=== PATIENT | male | born 1940 | race Caucasian/White ===

== ENCOUNTER 2021-01-01 08:48 | Inpatient (IN) | payer MEDICARE ==
[~2021-01-01] VITALS: Ht 177.8 cm; Wt 87.5 kg
[~2021-01-01 08:48] MED LIST: ALDACTONE25 MG PO; AMIODARONE HCL200 MG PO; BUMETANIDE1 MG PO; CLONAZEPAM1 MG PO; COREG6.25 MG PO; K-DUR TAB 10 M10 MEQ PO; LIPITOR TAB 1010 MG PO; NITROSTAT 0.40.4 MG SL; NOVOLIN 70100 UNITS/ SC; PLAVIX75 MG PO; WARFARIN SODIUM4 MG PO
[2021-01-01 10:39] LABS: RED BLOOD COUNT 4.25 M/UL (4.20-5.50); WHITE BLOOD COUNT 12.5 K/UL (4.5-11.0)
[2021-01-01] MEDS ORDERED: NOVOLIN 70100 UNITS/ SC (12:31)
[2021-01-01] MEDS ORDERED: WARFARIN SODIUM3 MG PO (12:36)
[2021-01-01] MEDS ORDERED: KLONOPIN TAB 00.5 MG PO (12:38)
[2021-01-01] MEDS ORDERED: NITROGLYCERIN0.4 MG SL (12:39)
[2021-01-01] MEDS ORDERED: DULCOLAX STOOL100 MG PO (12:40)
[2021-01-01] MEDS ORDERED: SYSTANE 0.3-0.415 ML OU (12:43)
[2021-01-01 13:56] LABS: HEMOGLOBIN 12.9 gm/dl (14.0-17.5); RED BLOOD COUNT 3.94 M/UL (4.20-5.50); WHITE BLOOD COUNT 12.8 K/UL (4.5-11.0)
[2021-01-01] MEDS ORDERED: COREG3.125 MG PO (19:28)
[2021-01-01] MEDS ORDERED: ISOSORBIDE MONO30 MG PO (19:30)
[2021-01-01 20:52] LABS: HEMOGLOBIN 12.3 gm/dl (14.0-17.5); RED BLOOD COUNT 3.82 M/UL (4.20-5.50); WHITE BLOOD COUNT 11.5 K/UL (4.5-11.0)
[2021-01-02 04:21] LABS: RED BLOOD COUNT 3.7 M/UL (4.20-5.50); WHITE BLOOD COUNT 10.9 K/UL (4.5-11.0)
--- NOTE | 2021-01-02 19:32 | NUR ---
SPOKE WITH BOTH DR LEMA AND DR AVINA ABOUT RESTARTING HEPARIN GTT. BOTH WANTED HEPARIN GTT STARTED ONCE PT GOT ONTO FLOOR. LABS PUT IN. DR LEMA ALSO WANTS HOME DOSE OF COUMADIN RESUMED AND GIVEN NOW.
[2021-01-02 20:07] LABS: HEMOGLOBIN 12.8 gm/dl (14.0-17.5); RED BLOOD COUNT 3.91 M/UL (4.20-5.50); WHITE BLOOD COUNT 18.7 K/UL (4.5-11.0)
[2021-01-04 04:21] LABS: WHITE BLOOD COUNT 21.8 K/UL (4.5-11.0)
[2021-01-04 04:26] LABS: RED BLOOD COUNT 3.12 M/UL (4.20-5.50)
[2021-01-04] MEDS ORDERED: KLONOPIN TAB 00.5 MG PO (12:13)
[2021-01-04] MEDS ORDERED: HUMALOG 10100 UNITS/ SC (12:13)
[2021-01-05 05:26] LABS: HEMOGLOBIN 8.6 gm/dl (14.0-17.5); RED BLOOD COUNT 2.7 M/UL (4.20-5.50); WHITE BLOOD COUNT 20.8 K/UL (4.5-11.0)
[2021-01-05] MEDS ORDERED: HYDROCODON-ACE1 EAC4 PO ×2 (09:07→09:17)
--- NOTE | 2021-01-05 09:46 | NUR ---
PATIENT NOTED TO HAVE A NEAR SYNCOPE EPISODE DURING PT EVAL THIS MORNING. PATIENT HAD TO BE STERNAL RUBBED AND CAME BACK TOO. PATIENT BP 139/74. SHE STATES THAT SHE WILL COME AND SEE THE PATIENT AND EVALUATE HIM. NO OTHER CHANGES NOTED.
--- NOTE | 2021-01-05 10:05 | NUR ---
NOTIFIED AT THIS TIME OF BGL OF 460 MG/DL. SHE STATES TO GIVE A ONE TIME DOSE OF LANTUS 5 UNITS AND TREAT THE SUGAR ON SLDING SCALE WELL.
[2021-01-05 13:30] LABS: HEMOGLOBIN 8.7 gm/dl (14.0-17.5); RED BLOOD COUNT 2.7 M/UL (4.20-5.50); WHITE BLOOD COUNT 21.6 K/UL (4.5-11.0)
--- NOTE | 2021-01-05 14:40 | NUR ---
AFTER NITRO ADMINISTRATION PATIENTS BP IS NOTED TO DROP TO 71/42. NOTIFIED AND GAVE ORDERS FOR A 500 CC BOLUS OF NORMAL SALINE. STATES TO CONTINUE TO MONITOR FOR CHANGES.
[2021-01-06 04:54] LABS: HEMOGLOBIN 7.7 gm/dl (14.0-17.5)
[2021-01-06 05:00] LABS: RED BLOOD COUNT 2.4 M/UL (4.20-5.50)
[2021-01-07 05:32] LABS: RED BLOOD COUNT 2.57 M/UL (4.20-5.50); WHITE BLOOD COUNT 19.3 K/UL (4.5-11.0)
--- NOTE | 2021-01-07 09:52 | NUR ---
PATIENT NOTED TO HAVE AN O2 SAT OF 83% ON 2LNC. PROVIDER MADE AWARE AND ORDERS GIVEN TO BMP O2 TO 4LNC. PATIENT SAT NOTED TO RISE TO 94% ON 4LNC.
[2021-01-08 09:04] LABS: HEMOGLOBIN 7.3 gm/dl (14.0-17.5)
[2021-01-08 09:08] LABS: RED BLOOD COUNT 2.28 M/UL (4.20-5.50)
--- NOTE | 2021-01-09 05:11 | NUR ---
0500- PATIENT TOOK DRESSING ON RIGHT HIP OFF SEVERAL TIMES THRU THE NIGHT, REPLACED X 2 BUT PT KEPT REMOVING. INCISION C,D,I
[2021-01-09 08:06] LABS: HEMOGLOBIN 7.3 gm/dl (14.0-17.5); RED BLOOD COUNT 2.33 M/UL (4.20-5.50); WHITE BLOOD COUNT 17.8 K/UL (4.5-11.0)
[2021-01-09 08:33] LABS: BUN/CREATININE RATIO 33 (0-10)
[2021-01-10 03:49] LABS: RED BLOOD COUNT 2.27 M/UL (4.20-5.50); WHITE BLOOD COUNT 14.5 K/UL (4.5-11.0)
[2021-01-10 04:10] LABS: BUN/CREATININE RATIO 29 (0-10)
--- NOTE | 2021-01-11 03:00 | NUR ---
PT HAS BEEN AGITATED AND UNCOOPERATIVE FOR MOST OF SHIFT. PT DOES NOT ALLOW ANY HOSPITAL PERSONNEL OR HIS OWN DAUGHTERS TO TOUCH HIM MOST TIMES. PT HAS NOT BEEN COOPERATIVE ENOUGH TO ALLOW FOR POTENTIAL BLOOD TRANSFUSION THAT HAS BEEN ORDERED. DAUGHTERS STATE THAT THEY WANT TO TRY AND WAIT UNTIL DAYLIGHT OR MID-MORNING TO ATTEMPT TO GIVE BLOOD R/T PT'S AGGRESSION. PT DAUGHTERS ALSO STATED THAT THEY WANTED TO WAIT UNTIL 0400 TO SEE IF PT WAS STILL AWAKE BEFORE DRAWING ORDERED LABWORK. DAUGHTERS BOTH STATED THAT IF PT IS SLEEPING AT 0400, THEN THEY WANT TO WAIT UNTIL "6 OR 7 O'CLOCK" TO DRAW BLOODWORK. DAUGHTERS ARE AWARE OF HGB LEVEL AND STATE AN UNDERSTANDING FOR THE NEED FOR THE BLOOD TRANSFUSION. PT IS ASYMPTOMATIC ANEMIA WITH NO CURRENT S/S OF COMPLICATIONS NOTED. WCTM
[2021-01-11 06:20] LABS: RED BLOOD COUNT 2.16 M/UL (4.20-5.50); WHITE BLOOD COUNT 15.2 K/UL (4.5-11.0)
[2021-01-11 06:34] LABS: HEMOGLOBIN 6.8 gm/dl (14.0-17.5)
[2021-01-11 06:45] LABS: BUN/CREATININE RATIO 26 (0-10)
[2021-01-11 14:27] LABS: HEMOGLOBIN 8.1 gm/dl (14.0-17.5)
[2021-01-11 15:06] LABS: WHITE BLOOD COUNT 14.9 K/UL (4.5-11.0)
[2021-01-11 15:07] LABS: RED BLOOD COUNT 2.58 M/UL (4.20-5.50)
[2021-01-12 08:04] LABS: BUN/CREATININE RATIO 25 (0-10)
[2021-01-13 06:01] LABS: HEMOGLOBIN 8.3 gm/dl (14.0-17.5); RED BLOOD COUNT 2.62 M/UL (4.20-5.50); WHITE BLOOD COUNT 16.5 K/UL (4.5-11.0)
[2021-01-13 06:18] LABS: BUN/CREATININE RATIO 23 (0-10)
--- NOTE | 2021-01-13 15:27 | NUR ---
RN AND STAFF TRANSFERRED PATIENT UTILIZING WALKER. FAMILY AT BEDSIDE STATED THEY THOUGHT PATIENT HAD TWO PRESSURE ULCERS ON THE BOTTOM OF HIS RIGHT THIGH DIRECTLY ABOVE THE BEND OF HIS KNEE. RN AND STAFF POSITIONED PATIENT IN A LYING POSITION IN BED, LOG ROLLED HIM ON HIS LEFT SIDE AND ASSESSED AREA. YELLOW AND PINK DISCOLORATION WITH SCANT PEELING NOTED TO TOP LEFT BORDER OF AREA. DECREASED EDEMA AND BRUISING NOTED TO RIGHT LEG VERBALIZED BY FAMILY. ALLEVYN PLACED ON AREA TO PROVIDE PROTECTION AND PREVENT FURTHER SKIN BREAKDOWN. DR. MANJARREZ MADE AWARE.
--- NOTE | 2021-01-14 15:24 | NUR ---
01/14/21 1520 BACK TO BED
[2021-01-15 06:54] LABS: HEMOGLOBIN 8.9 gm/dl (14.0-17.5); RED BLOOD COUNT 2.81 M/UL (4.20-5.50); WHITE BLOOD COUNT 15.9 K/UL (4.5-11.0)
[2021-01-15 07:10] LABS: BUN/CREATININE RATIO 24 (0-10)
[2021-01-15] MEDS ORDERED: LOVENOX100 MG/1 M SQ (11:28)
--- NOTE | 2021-01-15 12:33 | NUR ---
01/15/21 [id number] REPORT CALLED TO CELESTE AT [facility]
[2021-01-16] MEDS ORDERED: WARFARIN SODIUM5 MG PO (20:24)
[2021-01-16] MEDS ORDERED: MIRALAX17 GM PO (20:26)
== END 2021-01-15 14:37 | disposition home health service (06) | DRG 480 ==
LOC: ER1 08:48 → CDU 11:25 → MED SURG 4 11:25
PROVIDERS: Internal Medicine Infectious Disease; Orthopaedic Surgery; Physician Assistant; Physician Assistant Medical; ADMIT Internal Medicine
PROC: 0QS604Z Reposition Right Upper Femur with Internal Fixation Device, Open Approach (ICD-10-PCS; 2021-01-02)
PROC: 30233N1 Transfusion of Nonautologous Red Blood Cells into Peripheral Vein, Percutaneous Approach (ICD-10-PCS; principal; 2021-01-06)
DX: S72.141A Displaced intertrochanteric fracture of right femur, initial encounter for closed fracture (principal); G92 Toxic encephalopathy; I50.23 Acute on chronic systolic (congestive) heart failure; J69.0 Pneumonitis due to inhalation of food and vomit; Z20.822 Contact with and (suspected) exposure to COVID-19; I13.0 Hypertensive heart and chronic kidney disease with heart failure and stage 1 through stage 4 chronic kidney disease, or unspecified chronic kidney disease; D62 Acute posthemorrhagic anemia; N17.9 Acute kidney failure, unspecified; M96.830 Postprocedural hemorrhage of a musculoskeletal structure following a musculoskeletal system procedure; N18.30 Chronic kidney disease, stage 3 unspecified; W08.XXXA Fall from other furniture, initial encounter; I25.10 Atherosclerotic heart disease of native coronary artery without angina pectoris; T45.515A Adverse effect of anticoagulants, initial encounter; E78.5 Hyperlipidemia, unspecified; E11.65 Type 2 diabetes mellitus with hyperglycemia; F41.9 Anxiety disorder, unspecified; I25.5 Ischemic cardiomyopathy; I48.0 Paroxysmal atrial fibrillation; Y83.8 Other surgical procedures as the cause of abnormal reaction of the patient, or of later complication, without mention of misadventure at the time of the procedure; F03.90 Unspecified dementia, unspecified severity, without behavioral disturbance, psychotic disturbance, mood disturbance, and anxiety; Z95.5 Presence of coronary angioplasty implant and graft; Z95.1 Presence of aortocoronary bypass graft; Z95.810 Presence of automatic (implantable) cardiac defibrillator; Z79.01 Long term (current) use of anticoagulants; Z88.2 Allergy status to sulfonamides; Z82.49 Family history of ischemic heart disease and other diseases of the circulatory system; Z83.3 Family history of diabetes mellitus; Z79.4 Long term (current) use of insulin; Z79.899 Other long term (current) drug therapy
CPT/HCPCS: 36415; 36430; 51702; 70450; 71045; 73502; 73552; 74018; 76000; 80048; 80053; 80202; 81001; 82550; 82553; 82962; 83605; 83735; 83874; 83880; 84484; 85007; 85018; 85025; 85027; 85610; 85730; 86850; 86900; 86901; 86920; 87040; 93005; 94640; 94760; 96374; 96375; 97110-GP-CQ; 97116; 97116-GP-CQ; 97163; 97166; 97530; 97530-GP-CQ; 97535; 99285; C1713; J0171; J0690; J1100; J1630; J1644; J1650; J1720; J1885; J2001; J2060; J2270; J2405; J2543; J2795; J3010; J3370; J3486; J7030; J7040; J7050; J7070; J7120; P9016; U0002

== ENCOUNTER 2021-01-16 10:28 | Inpatient (IN) | payer MEDICARE ==
[~2021-01-16] VITALS: Ht 177.8 cm; Wt 87.1 kg
[~2021-01-16 10:28] MED LIST changes: +COREG3.125 MG PO; +DULCOLAX STOOL100 MG PO; +HUMALOG 10100 UNITS/ SC; +HYDROCODON-ACE1 EAC4 PO; +ISOSORBIDE MONO30 MG PO; +KLONOPIN TAB 00.5 MG PO; +LOVENOX100 MG/1 M SQ; +NITROGLYCERIN0.4 MG SL; +SYSTANE 0.3-0.415 ML OU; +WARFARIN SODIUM3 MG PO
[2021-01-16 11:51] LABS: HEMOGLOBIN 9.7 gm/dl (14.0-17.5); WHITE BLOOD COUNT 16.8 K/UL (4.5-11.0)
[2021-01-16 12:01] LABS: RED BLOOD COUNT 3.12 M/UL (4.20-5.50)
[2021-01-16 12:38] LABS: BUN/CREATININE RATIO 24 (0-10)
[2021-01-16] MEDS ORDERED: WARFARIN SODIUM5 MG PO (20:24)
[2021-01-16] MEDS ORDERED: MIRALAX17 GM PO (20:26)
[2021-01-17 05:56] LABS: RED BLOOD COUNT 3.24 M/UL (4.20-5.50); WHITE BLOOD COUNT 14.6 K/UL (4.5-11.0)
[2021-01-17 06:36] LABS: BUN/CREATININE RATIO 24 (0-10)
[2021-01-18 05:35] LABS: HEMOGLOBIN 9.1 gm/dl (14.0-17.5); RED BLOOD COUNT 3.08 M/UL (4.20-5.50); WHITE BLOOD COUNT 17.4 K/UL (4.5-11.0)
[2021-01-18 12:02] LABS: HEMOGLOBIN 9.7 gm/dl (14.0-17.5); RED BLOOD COUNT 3.2 M/UL (4.20-5.50); WHITE BLOOD COUNT 15.9 K/UL (4.5-11.0)
[2021-01-19 07:42] LABS: HEMOGLOBIN 9.3 gm/dl (14.0-17.5); RED BLOOD COUNT 3.09 M/UL (4.20-5.50); WHITE BLOOD COUNT 14.9 K/UL (4.5-11.0)
[2021-01-19 15:17] LABS: HEMOGLOBIN 8.9 gm/dl (14.0-17.5)
[2021-01-20 00:10] LABS: HEMOGLOBIN 8.6 gm/dl (14.0-17.5)
[2021-01-20 06:57] LABS: HEMOGLOBIN 9.1 gm/dl (14.0-17.5); RED BLOOD COUNT 2.95 M/UL (4.20-5.50)
[2021-01-20 07:30] LABS: BUN/CREATININE RATIO 22 (0-10)
[2021-01-20] MEDS ORDERED: AMOX TR-K CLV1 EAC4 PO (12:09)
[2021-01-20] MEDS ORDERED: NYSTOP60 GM TOP (12:09)
== END 2021-01-20 20:30 | DRG 177 ==
LOC: ER1 10:28 → CDU 16:24 → M/S 16:24
PROVIDERS: Physician Assistant Medical; ADMIT Family Medicine
PROC: B24BZZ4 Ultrasonography of Heart with Aorta, Transesophageal (ICD-10-PCS; principal; 2021-01-19)
DX: J69.0 Pneumonitis due to inhalation of food and vomit (principal); S72.091A Other fracture of head and neck of right femur, initial encounter for closed fracture; I50.23 Acute on chronic systolic (congestive) heart failure; G93.41 Metabolic encephalopathy; D68.9 Coagulation defect, unspecified; N17.9 Acute kidney failure, unspecified; F05 Delirium due to known physiological condition; I48.20 Chronic atrial fibrillation, unspecified; K59.00 Constipation, unspecified; W18.30XA Fall on same level, unspecified, initial encounter; K80.20 Calculus of gallbladder without cholecystitis without obstruction; Z20.822 Contact with and (suspected) exposure to COVID-19; I25.10 Atherosclerotic heart disease of native coronary artery without angina pectoris; I25.5 Ischemic cardiomyopathy; F41.9 Anxiety disorder, unspecified; I11.0 Hypertensive heart disease with heart failure; I48.0 Paroxysmal atrial fibrillation; I27.20 Pulmonary hypertension, unspecified; F03.90 Unspecified dementia, unspecified severity, without behavioral disturbance, psychotic disturbance, mood disturbance, and anxiety; E80.6 Other disorders of bilirubin metabolism; E11.9 Type 2 diabetes mellitus without complications; I08.1 Rheumatic disorders of both mitral and tricuspid valves; E78.5 Hyperlipidemia, unspecified; Z95.5 Presence of coronary angioplasty implant and graft; Z95.1 Presence of aortocoronary bypass graft; Z79.01 Long term (current) use of anticoagulants; Z79.4 Long term (current) use of insulin; Z88.2 Allergy status to sulfonamides; Z83.3 Family history of diabetes mellitus; Z82.49 Family history of ischemic heart disease and other diseases of the circulatory system; I25.2 Old myocardial infarction
CPT/HCPCS: ECHO; 36415; 70450; 71045; 73552; 73564; 73590; 73700; 80053; 81001; 82140; 82962; 83605; 83735; 83880; 84100; 85014; 85018; 85025; 85027; 85610; 85730; 87040; 92610; 93306; 93971; 96374; 97110-GP-CQ; 97116-GP-CQ; 97163; 97166; 97530-GP-CQ; 99284; A6212; J1650; J1885; J2270; J2543; U0002

== ENCOUNTER 2022-05-14 09:17 | Emergency (ER) | payer MEDICARE, OTHER ==
[~2022-05-14 09:17] MED LIST changes: +AMOX TR-K CLV1 EAC4 PO; +MIRALAX17 GM PO; +NYSTOP60 GM TOP; +WARFARIN SODIUM5 MG PO
[2022-05-14 10:22] LABS: RED BLOOD COUNT 3.96 M/UL (4.20-5.50); WHITE BLOOD COUNT 12.6 K/UL (4.5-11.0)
[2022-05-14] MEDS ORDERED: AMOX TR-K CLV1 EAC4 PO (14:17)
== END 2022-05-14 14:51 | disposition home or self-care (01) ==
LOC: ER1 09:17
PROVIDERS: Nurse Practitioner
DX: K80.20 Calculus of gallbladder without cholecystitis without obstruction (principal); I25.2 Old myocardial infarction; E11.9 Type 2 diabetes mellitus without complications; I10 Essential (primary) hypertension; Z95.1 Presence of aortocoronary bypass graft; Z95.5 Presence of coronary angioplasty implant and graft; Z88.8 Allergy status to other drugs, medicaments and biological substances
CPT/HCPCS: 73502; 80053; 81001; 83605; 83690; 85025; 87086; 99284; Q9965